=== PATIENT | female | born 1975 | race Caucasian/White ===

== ENCOUNTER 2016-12-03 05:30 | Inpatient (IN) | payer OTHER ==
[~2016-12-03] VITALS: Ht 157.5 cm; Wt 78.5 kg
[2016-12-03] MEDS ORDERED: Lactated Ringer's 1,000 ML IV SCH (06:13)
[2016-12-03] MEDS ORDERED: Hemorrhage Kit, Post Partum XX ONE ×2 (06:15→07:55)
[2016-12-03] MEDS ORDERED: Sodium Citrate-Citric Acid 15 mL Solution PO SCH (06:15)
[2016-12-03] MEDS ORDERED: Carboprost 250 mCg/mL Inj IM PRN ×2 (06:15→07:55)
[2016-12-03] MEDS ORDERED: Methylergonovine 0.2 mg/mL Inj IM PRN ×2 (06:15→07:55)
[2016-12-03] MEDS ORDERED: Oxytocin 10 Unit/mL Inj IM PRN ×2 (06:15→07:55)
[2016-12-03] MEDS ORDERED: CeFAZolin Inj 2 GM in IV Premix 1 EACH IV SCH (06:25)
--- NOTE | 2016-12-03 07:31 | HP ---
[address] [address] HISTORY AND PHYSICAL PATIENT: MIGUEL GIBSON : 1975 MR#: [id number] ADMIT: 12/03/2016 JOB ID: [id number] [facility] NOTE: DATE: 12/03/2016 SUBJECTIVE: The patient has been followed prenatally at [facility], see record for details. Due date is December 10, 2016, placing the patient at 39 weeks of gestation at the time of admission to the [facility] for repeat section at her request. Note that placenta is in anterior position, and extending down to the lower uterine segment, although not a placenta previa. Formal ultrasound at [facility] as well as per [facility] staff demonstrated normal-appearing interface between the placenta and lower uterine segment myometrium, without any findings to suggest accreta. The patient is thus considered at low risk for accreta, I discussed the case with anesthesiologist, Dr. Liam Rodriguez, head of surgery, and it will be my plan to make a lower uterine segment incision caudal to the lower placental edge, likely to be feasible. I discussed anterior placental position and potential increased risk of bleeding at surgery with the patient, and so forth, although not anticipating problems on this, her 2nd . The patient has understood risks of surgery in general, to include bleeding, infection, injury to the urinary tract and bowel, anesthetic risks, postoperative deep venous thrombosis and pulmonary embolus, wound problems, pain, etc. All questions have been answered, no guarantees have been stated or implied, and she has signed informed consent for surgery. Note also that there is known degenerative disk disease at the L5-S1 level with posterolateral annular disk bulge causing severe compromise of the right nerve root canal, possibly impinging the right L5 spinal nerve. This MRI-demonstrated information was gleaned on December 25, 2014, see report. Note that at the L4-L5 level also there was suspected mild central canal stenosis, mild broad-based annular bulge slightly indenting the ventral margin of the thecal sac, mild bilateral facet arthropathy, and mild bilateral foraminal narrowing. This report has been sent to the hospital for review by anesthesiologist, note that the patient did have spinal prior to the last . PHYSICAL EXAMINATION: On admission, height 5 feet 2 inches. Last numbers from the office include weight 171 pounds. Blood pressure 128/80. Neck: No thyromegaly. Lungs: Clear to auscultation and percussion. Heart: Regular in rate and rhythm. Abdomen: Fundal height consistent with term size. Positive heartbeat. Pelvic examination deferred. IMPRESSION: 1. A 39-week . 2. Prior section, for scheduled repeat at patient's request. 3. Anterior placenta extending down to the lower uterine segment, although no placenta previa, and normal interface between placenta and lower uterine segment myometrium, no evidence for placenta accreta, considered low risk. 4. Advanced maternal age, declined genetic screening, note level two sonogram negative. 5. Lower back problems, see description above, MRI report in chart for anesthesia review prior to spinal anesthesia. 6. No tubal ligation planned at surgery, repeat vasectomy is planned. 7. Group B strep test negative. 8. Rubella immune status. 9. Rh positive. 10. Up to date with Tdap and flu shot, both received in . 11. Smoking and marijuana history, smoking reported in , marijuana years ago. 12. The patient prefers no blood transfusion, simply in general. I note that it is uncommon to receive blood transfusion, although I would provide it if indicated to achieve appropriate healing and recovery, and especially if to save her life. 13. See record for additional diagnoses and information. PLAN: The patient will be admitted to [facility] on December 03, 2016, on which day she will undergo repeat section.
--- NOTE | 2016-12-03 07:45 | PCM.HPANE ---
Patient Data Surgeon Admitting Provider:Keegan Keller MD Attending Provider:Keegan Keller MD Primary Care Physician:Wicho Mosquera DO Other Provider:Alicia Vance Anesthesia Reason for Visit repeat scetion repeat scetion Ht/WT & BMI Body Mass Index Allergies Coded Allergies: No Known Allergies (Unverified , 12/03/16) History Smoking Status: Light Tobacco Smoker Stop/Bang Risk Assessment Category Category 1A: Patient has history of documented sleep apnea, and HAS NOT received any narcotic, sedative or anesthesia administration during this stay. Category 1B: Patient has history of documented sleep apnea, and HAS received any narcotic , sedative or anesthesia administration during this stay Category 2: Patient has SUSPECTED Obstructive Sleep Apnea, and HAS received any narcotic , sedative or anesthesia administration during this stay. Category 3: Patient has SUSPECTED Obstructive Sleep Apnea and HAS NOT received narcotic, sedative or anesthesia administration during this stay. Category 4: Outpatient in Procedural Areas with known sleep apnea or who screen positive for High Risk via the STOP/BANG questionnaire. Exam Exam General Appearance: Alert, Oriented X3, Cooperative, No Acute Distress HEENT/AIRWAY: MP 2 Lungs: Clear to Auscultation Heart: Exam Unremarkable Meds/Labs/Diagnostics Admission Meds Current Medications Lactated Ringer's (Lr) 1,000 ml @ 125 mls/hr Q8H IV Last administered on t 06:42; Start 12/03/16 at 06:13; Stop 12/03/16 at 14:12 Plan Impression Patient chart reviewed, patient interviewed and anesthestic plan with risks, benefits, and alternatives discussed, and informed consent obtained. ASA Physical Status: ASA2 Mod Systemic Disease Anesthetic Plan: SAB Bene/Risks/Altern/Consents: Yes HP Complete Prior to Induction: Yes Manav Melgar MD Dec 03, 2016 07:45
[2016-12-03] MEDS ORDERED: Measles-Mumps-Rubella Vaccine 0.5 mL Inj SUBQ ONE (07:55)
[2016-12-03] MEDS ORDERED: Oxytocin 30 Units/500 mL LR 30 UNITS in IV Premix 1 EACH IV PRN (07:55)
[2016-12-03] MEDS ORDERED: hydrOXYzine Pamoate 25 mg Capsule PO PRN (07:55)
[2016-12-03] MEDS ORDERED: Acetaminophen IV 1,000 MG in IV Premix 1 EACH IV PRN (07:55)
[2016-12-03] MEDS: Lactated Ringer's 1,000 ML IV SCH ×4 (07:55→22:24)
[2016-12-03] MEDS ORDERED: Sodium Chloride LOK Flush 10 mL Syringe IVFLUSH PRN (07:55)
[2016-12-03] MEDS ORDERED: Influenza (Adult) Vaccine 0.5 mL Syringe IM ONE (07:55)
[2016-12-03] MEDS ORDERED: LANOlin HPA 7 Gm Ointment TOPICAL PRN (07:55)
[2016-12-03] MEDS ORDERED: TdaP Vaccine 0.5 mL Inj IM ONE (07:55)
[2016-12-03 07:59] LABS: Mean Corpuscular Hemoglobin 32.2 pg (27.0-35.0)
[2016-12-03] MEDS ORDERED: Lactated Ringer's 1,000 ML IV PRN (09:33)
[2016-12-03] MEDS ORDERED: Ondansetron 2 mg/mL 2 mL Inj IVPUSH PRN (09:35)
[2016-12-03] MEDS ORDERED: EPHEDrine Sulfate 50 mg/mL Inj IVPUSH PRN (09:35)
[2016-12-03] MEDS ORDERED: fentaNYL-PF 50 mCg/mL 2 mL Inj IVPUSH PRN (09:35)
[2016-12-03] MEDS ORDERED: HYDROmorphone 1 mg/mL Inj IVPUSH PRN (09:35)
[2016-12-03] MEDS ORDERED: MetoCLOpramide 5 mg/mL 2 mL Inj IVPUSH PRN (09:35)
[2016-12-03] MEDS ORDERED: Atropine 0.4 mg/mL Inj IV PRN (09:35)
[2016-12-03] MEDS ORDERED: Morphine PF 1 mg/mL 10 mL Inj INTRATHEC ONE (09:35)
[2016-12-03] MEDS ORDERED: Dexamethasone 4 mg/mL Inj IVPUSH PRN (09:35)
[2016-12-03] MEDS ORDERED: Morphine PF 1 mg/mL 10 mL Inj ONE (10:26)
[2016-12-03] MEDS ORDERED: fentaNYL-PF 50 mCg/mL 2 mL Inj ONE (10:26)
[2016-12-03] MEDS ORDERED: Nalbuphine 10 mg/mL Inj IM PRN (10:40)
--- NOTE | 2016-12-03 11:24 | PCM.ANEP1 ---
Post Anesthesia Phase 1 PACU Phase 1 Assessment Anesthetic Administered: SAB Level of Alertness: Awake, talking HALLMAN's with Equal Strength: No (spinal) Pain: No Nausea or Vomiting: No Oxygen Delivery: Room Air Lungs: Clear to Auscultation Manav Melgar MD Dec 03, 2016 11:24
--- NOTE | 2016-12-03 11:24 | PCM.ANEP2 ---
Post Anesthesia Evaluation ASA/CMS Post Anesthesia VS in Patient's Normal Range?: Yes Resp Stable; Airway Patent?: Yes CV Function & Hydration Stable: Yes Mental Status Recovered?: Yes Pain control Satisfactory?: Yes N/V Control Satisfactory?: Yes Manav Melgar MD Dec 03, 2016 11:24
[2016-12-03] MEDS ORDERED: Propofol 10,000 mCg/mL 20 mL Inj ONE (12:22)
[2016-12-03] MEDS ORDERED: Phenylephrine/NS 100 mCg/mL 10 mL Syringe IVPUSH ONE (12:22)
[2016-12-03] MEDS ORDERED: Lidocaine 1%-Epi 1:100,000 20 mL Inj ONE (12:22)
[2016-12-03] MEDS ORDERED: Bupiv-Spinal 0.75%/Dex 8.25% 2 mL Inj ONE (12:22)
[2016-12-03] MEDS ORDERED: Oxytocin 10 Unit/mL Inj ONE (12:22)
[2016-12-03] MEDS ORDERED: Nalbuphine 10 mg/mL Inj IV PRN (16:40)
[2016-12-03] MEDS: oxyCODONE-Acetamin 5-325 mg Tablet PO PRN ×2 (18:10→22:24)
--- NOTE | 2016-12-03 18:52 | OP ---
[address] [address] OPERATIVE REPORT PATIENT: MIGUEL GIBSON : 1975 MR#: [id number] ADMIT: 12/03/2016 JOB ID: [id number] DATE OF SURGERY: 12/03/2016 SURGEON: Kegean Keller MD STOCK SAW OPERATOR: Maurizio Roca MD ANESTHESIA: Spinal. PREOPERATIVE DIAGNOSIS(ES): 1. Term . 2. Prior section, for scheduled repeat section at the patient's request. POSTOPERATIVE DIAGNOSIS(ES): 1. Term . 2. Prior section, for scheduled repeat section at the patient's request. 3. Significant postoperative adhesions. PROCEDURES PERFORMED: 1. Repeat low transverse section. 2. Significant adhesiolysis. FINDINGS AT SURGERY: There were significant adhesions binding the omentum to the anterior abdominal peritoneal wall. Adhesions were dense and adhesiolysis challenging, yet ultimately all adhesions were lysed and the omentum was freed up. Fallopian tubes and ovaries were normal as was the uterus and bladder area. Note that upon entrance into the uterine cavity, there was noted caudal edge of the placenta as anticipated based on late ultrasounds. There was no accreta. There was slightly greater than average blood loss, with its blood loss in the 600 cc range. Uterus then contracted well with minimal bleeding occurring. Note, the amniotic fluid was clear and fetus was in vertex presentation. Upon delivery, the baby was active and crying and vigorous. After 1 minute of delayed cord clamping, the infant was further managed by nursing staff at the [facility]. At procedure's close, there was minimal bleeding occurring. The patient was doing well. Anticipate that the patient and baby will do well during the postoperative/ timeframe. Note that patient has indicated that she does not plan on having additional children and her apparently is going to have repeat vasectomy. She did not want tubal ligation, however, and this was not accomplished today. PROCEDURE IN DETAIL: The patient was placed in supine position on the operating table. After activation of spinal anesthesia per anesthesiologist, she was then repositioned in the left lateral tilt position and prepped and draped in the usual sterile manner. [place] catheter had already been placed. Appropriate time-out was taken and anesthesia checked, and then was brought into the room. Pfannenstiel incision was then made just caudal to the old surgical scar and incision was carried through skin, subcutaneous tissues and fascia layer. There were some significant subcutaneous bleeding sites identified. Cautery was utilized. Recheck and complete hemostasis. Once the rectus muscles were then from the overlying fascia and then in the midline where there was already noted some diastasis, very densely adherent omentum was identified requiring tedious dissection from surrounding muscles and anterior abdominal wall peritoneum. Omentum was ultimately freed up and we could then make progress moving into the abdominal cavity. Vesicouterine peritoneal fold was then incised, bladder flap developed and incision was carried through the lower uterine segment wall down to the amniotic sac, which was ruptured and clear fluid recovered. The incision was then extended bilaterally in a curvilinear direction upward and caudal aspect of the placental edge was noted at the edge of our uterine incision. Head was then brought through the incision followed by the shoulders, body and extremities and baby was active and crying and vigorous. Pressure was held on the uterine incision for 1 minute and then the umbilical cord was clamped and cut. Infant was carried to the warmer for further nurse management. Cord blood was obtained for routine studies. Placenta with membranes was then massaged from the uterus, intact. Cervix was noted to be at 1 to 1.5 cm dilated. Uterus contracted well with massage plus intravenous Pitocin infusion and the uterine cavity was gauze curettaged. Uterine incision was then closed in a running, locking manner using #1 chromic suture with complete hemostasis achieved. The bladder area was inspected and there were no bleeding sites. The posterior cul-de-sac was irrigated and inspected and there were no worrisome findings. Ovaries and tubes were inspected and found to be normal. Instrument, needle and sponge counts were found to be correct and uterus was returned to the abdominal cavity. Gutter areas were cleared of blood and clots and final inspection of bladder was accomplished and check of urine also accomplished and found to be clear. Rectus muscles were then drawn together across the midline using interrupted stitches of #1 chromic suture. Subfascial plane was then inspected and light cautery applied where needed, and the fascial layer was then closed in a running manner using #1 PDS, with great care given to bury the knot at each end. Subcutaneous tissue thickness warranted placement of 3-0 Vicryl interrupted vertical mattress stitches and hemostasis was noted to be complete. Skin incision was then closed with sue and pressure dressing was applied and uterus was expressed of blood and clots and fluid. Procedure was thus complete. Patient was taken to her room for recovery. ESTIMATED BLOOD LOSS: 600 cc. COMPLICATIONS: None. PROGNOSIS: Good for complete recovery. MTDD
[2016-12-04] MEDS: oxyCODONE-Acetamin 5-325 mg Tablet PO PRN ×6 (02:38→23:42)
[2016-12-04 06:24] LABS: Mean Corpuscular Volume 94.9 fL (81-100)
[2016-12-04] MEDS: Lactated Ringer's 1,000 ML IV SCH (15:55)
--- NOTE | 2016-12-04 19:49 | PROG NOTE ---
[address] [address] PROGRESS NOTE PATIENT: MIGUEL GIBSON : 1975 MR#: [id number] ADMIT: 12/03/2016 JOB ID: [id number] DATE: 12/04/2016 This patient underwent scheduled repeat section at term on December 03, 2016. During the postoperative/ timeframe, the patient has done well, with stable vitals, afebrile, with reasonable bleeding, with reasonable pain management, ambulating, voiding, without leg pain or shortness of breath, without incisional problem, handling baby well. Patient moved gas, but requested Dulcolax suppository. She also has been nursing well. PLAN: Continue postoperative/ care, anticipating discharge to home tomorrow, i.e. on December 05, 2017.
--- NOTE | 2016-12-05 07:49 | PCM.DIOB ---
Obstetrical Disch Instruction Dates of Hospitalization Date of Hospital Admission Dec 03, 2016 at 05:30 Providers Admitting Physician: Keegan Keller MD Primary Care Physician: Nopcp Attending Physician: Keegan Keller MD Discharge Diagnosis Problems: (1) Previous section Status: Acute ICD Code: Z98.89 Diet Discharge Diet: No restrictions Activity Discharge Activity-General: Pelvic Rest for 6 weeks, No lifting >10 pounds for 4-6 weeks Dressing and Incisional Care Dressing Care: Allow Steri Stripes to fall off Hygiene: May shower, DO NOT soak incision under water, NO bathtub, hot tub or whirlpool Follow Up Plan Follow-up appointment: Weeks (Follow up in 2 and in 6 weeks for / postoperative check ups.) Call your provider for: Fever or Chills, Shortness of breath, Heavy vaginal bleeding, Red painful breasts Keegan Keller MD Dec 05, 2016 07:49
[2016-12-05] MEDS ORDERED: IBUP-1827 PO (07:51)
[2016-12-05] MEDS ORDERED: OXYC1TAB24 PO (07:51)
[2016-12-05] MEDS: oxyCODONE-Acetamin 5-325 mg Tablet PO PRN (08:10)
[2016-12-05 13:38] VITALS: BP 130/69; PULSE 90; RESP 18
--- NOTE | 2016-12-06 00:08 | DIS ---
[address] [address] DISCHARGE SUMMARY PATIENT: MIGUEL GIBSON : 1975 MR#: [id number] ADMIT: 12/03/2016 JOB ID: [id number] DIS: 12/05/2016 DATE OF DISCHARGE: 12/05/2016 DISCHARGE DIAGNOSES: 1. Term , delivered. 2. Prior section, now status post repeat section. PROCEDURES PERFORMED DURING HOSPITALIZATION: 1. Repeat low transverse section. 2. Spinal anesthesia. HOSPITAL COURSE: Patient was admitted to [facility] on December 03, 2016, on which day, she underwent surgery as described. During the postoperative/ timeframe, patient did well, with stable vitals, afebrile, ambulating and voiding, tolerating regular diet, with reasonable bleeding and pain management, and handling baby well. hemoglobin was 10.7. Patient requested discharge to home on the second postoperative/ day, i.e. on December 05, 2016. DISCHARGE PROGRAM: Patient will call p.r.n., yet otherwise she will follow up at two and at six weeks for postoperative/ checkups. She will observe pelvic rest for six weeks. She will not do any heavy lifting for six weeks. [place] were removed prior to discharge, using benzoin and half-inch Steri-Strips. DISCHARGE MEDICATIONS: Include Percocet and ibuprofen (prescriptions written), and stool softener, and vitamin (patient has a supply at home).
== END 2016-12-05 15:12 | disposition home or self-care (01) | DRG 766 ==
LOC: FBC 05:30 → EDSTATUS 07:15
PROVIDERS: ADMIT Obstetrics & Gynecology; ATTEND Obstetrics & Gynecology
PROC: 0DNS0ZZ (ICD-10-PCS; 2016-12-03)
PROC: 10907ZC Drainage of Amniotic Fluid, Therapeutic from Products of Conception, Via Natural or Artificial Opening (ICD-10-PCS; 2016-12-03)
PROC: 10D00Z1 Extraction of Products of Conception, Low, Open Approach (ICD-10-PCS; principal; 2016-12-03 07:15)
DX: O34.211 Maternal care for low transverse scar from previous cesarean delivery (principal); F17.200 Nicotine dependence, unspecified, uncomplicated; O99.62 Diseases of the digestive system complicating childbirth; K66.0 Peritoneal adhesions (postprocedural) (postinfection); O99.334 Smoking (tobacco) complicating childbirth; Z3A.39 39 weeks gestation of pregnancy; Z37.0 Single live birth; O09.523 Supervision of elderly multigravida, third trimester